=== PATIENT | female | born 1990 | race Caucasian/White ===

== ENCOUNTER 2023-05-20 19:02 | Emergency (ER) | payer OTHER ==
[~2023-05-20] VITALS: Ht 162.6 cm; Wt 118.3 kg
[2023-05-20] MEDS ORDERED: LOPE1CAP5 PO (19:17)
[2023-05-20 20:23] LABS: HEMATOCRIT 43.9 % (36.0-47.0); MEAN CORPUSCULAR HEMOGLOBIN 27.2 pg (27.0-33.0); MEAN CORPUSCULAR HGB CONC 31.9 g/dl (32.0-36.5); MEAN CORPUSCULAR VOLUME 85.4 fl (80.0-96.0); PLATELET COUNT, AUTOMATED 245 10^3/uL (150-450); RED BLOOD COUNT 5.14 10^6/uL (4.00-5.40); WHITE BLOOD COUNT 7.6 10^3/uL (4.0-10.0)
[2023-05-20 20:48] LABS: ALKALINE PHOSPHATASE 90 U/L (46-116); ALT/SGPT 90 U/L (7.0-40); AST/SGOT 57 U/L (<34); BILIRUBIN,TOTAL 0.7 MG/DL (0.3-1.2); BLOOD UREA NITROGEN 8 MG/DL (9-23); CALCIUM LEVEL 8.6 MG/DL (8.5-10.1); CARBON DIOXIDE LEVEL 27 MMOL/L (20-31); CHLORIDE LEVEL 107 MMOL/L (98-107); GLOMERULAR FILTRATION RATE > 60.0 (>60); GLUCOSE, FASTING 92 MG/DL (60-100); POTASSIUM SERUM 4.2 MMOL/L (3.5-5.1); SODIUM LEVEL 141 MMOL/L (136-145); TOTAL PROTEIN 7.5 G/DL (5.7-8.2)
[2023-05-20 20:59] LABS: ATYPICAL LYMPH 16 % (0-5); EOSINOPHILS 3 % (0-3); LYMPHOCYTES 29 % (16-44); MONOCYTES 8 % (0-5); NEUTROPHILS 42 % (28-66); PLATELET ESTIMATE NORMAL (NORMAL)
[2023-05-20 22:59] VITALS: TEMP 97.5
[2023-05-21] MEDS ORDERED: NS 1,000 ML IV ONE (00:15)
[2023-05-21] MEDS ORDERED: ONDANSETRON 4MG 2ML VIAL IV ONE (00:15)
[2023-05-21 00:31] LABS: HCG, SERUM QUALITATIVE NEGATIVE (NEGATIVE)
[2023-05-21] MEDS ORDERED: KETOROLAC 30 MG/ML 1ML VIAL IV ONE (01:20)
[2023-05-21] MEDS ORDERED: ONDA4TAB6 PO (01:46)
[2023-05-21 02:02] VITALS: BP 158/78; O2SAT 99
== END 2023-05-21 02:09 | disposition home or self-care (01) ==
LOC: M ED 19:02
DX: K52.9 Noninfective gastroenteritis and colitis, unspecified (principal)
CPT/HCPCS: 80053; 84703; 85025; 87486; 87581; 87633; 87798; 93005; 96361; 96374; 96375; 99284; J1885; J2405